=== PATIENT | female | born 1980 | race Caucasian/White ===

== ENCOUNTER 2016-09-30 14:25 | Emergency (ER) | payer OTHER ==
[2016-09-30 14:31] VITALS: TEMP 98.6
--- NOTE | 2016-09-30 15:01 | EDPHY ---
H & P Stated Complaint: rlq abd pain for approx 8 days HPI/ROS: CHIEF COMPLAINT: RLQ pain HISTORY OF PRESENT ILLNESS: The patient is a 36-year-old female presenting with 8-10 days of abdominal pain. The patient's pain originated around the umbilicus and has now migrated to the right lower quadrant. Her pain has increased in severity over the past few days. She reports pain with movement and states her RLQ is tender to the touch. Over the past few nights she has been having night sweats. She has slight nausea, no emesis or diarrhea. LMP was 2 weeks ago. She denies chance of , had vasectomy. REVIEW OF SYSTEMS: A ten point review of systems was performed and is negative with the exception of the items mentioned in the HPI. Past medical history: Denies. Past surgical history: Denies. Family history: Noncontributory. 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 General Appearance: Alert. Vital signs reviewed. Eyes: Pupils equal and round, no conjunctival injection, no discharge. Anicteric. ENT, Mouth: Mucous membranes are moist, no oropharyngeal erythema or edema. Neck: No lymphadenopathy, supple. Respiratory: Lungs are clear to auscultation; no wheezes, rales, or rhonchi. Cardiovascular: Regular rate and rhythm; no murmur, rub, or gallop. Gastrointestinal: Abdomen is soft and nontender, no masses or organomegaly, bowel sounds normal. Skin: Warm and dry, no rashes on exposed skin, normal color. Back: Nontender to palpation over the thoracolumbar spine. No CVAT. Extremities: No lower extremity edema, no calf tenderness or swelling. Neurological: Alert and oriented. Moving all four extremities easily and equally. Psychiatric: Normal affect. Source: Patient - Personal History LMP (Females 10-55): 15-21 Days Ago Current Tetanus/Diphtheria Vaccine: Yes - Medical/Surgical History Hx Asthma: No Hx Chronic Respiratory Disease: No Hx Diabetes: No Hx Cardiac Disease: No Hx Renal Disease: No Hx Cirrhosis: No Hx Alcoholism: No Hx HIV/AIDS: No Hx Splenectomy or Spleen Trauma: No Other PMH: med hx-anxiety. surg-Tonsils, strabismus - Social History Smoking Status: Former smoker Constitutional: Initial Vital Signs Temperature (C) 37 C 09/30/16 14:29 Heart Rate 78 09/30/16 14:29 Respiratory Rate 18 09/30/16 14:29 Blood Pressure 107/75 09/30/16 14:29 O2 Sat (%) 99 09/30/16 14:29 O2 Delivery Mode Room Air Allergies/Adverse Reactions: Sulfa (Sulfonamide Antibiotics) Allergy (Verified 09/30/16 14:28) Home Medications: Medication Instructions Recorded Propranolol HCl 09/30/16 Zoloft 100mg (*) 09/30/16 Medical Decision Making - Diagnostics Imaging: Discussed imaging studies w/ call center manager Radiologist ED Course/Re-evaluation: Patient presents with 8-10 days of abdominal pain, now localized to the RLQ. I am concerned for appendicitis. Plan to check CBC, BMP and urinalysis. Abdomen/ pelvic ultrasound ordered to rule out appendicitis. US shows right ovarian cyst with fluid in the pelvis. Appendix is not visualized. No ovarian torsion. White blood cell count is normal. Given the finding of a right ovarian cyst with free fluid I think that appendicitis is left less likely. Appendicitis is also less likely given the fact that her pain has been evolving over the last 8- 10 days. She is comfortable returning home and I agree that this is appropriate. She is discharged in stable condition. I am recommending NSAIDs for pain control. Differential Diagnosis: I considered a differential diagnosis that includes but is not limited to appendicitis, ovarian torsion, ruptured ovarian cyst, ectopic , and urinary tract infection. - Data Points Laboratory Results: Laboratory Results 09/30/16 15:06 09/30/16 15:06 Medications Given: Discontinued Medications Sodium Chloride (Ns) 1,000 mls @ 0 mls/hr IV ONCE ONE PRN Reason: Wide Open Stop: 09/30/16 15:25 Last Admin: 09/30/16 15:25 Dose: 1,000 mls Departure - Departure Disposition: Home, Routine, Self-Care Clinical Impression: Ruptured ovarian cyst Condition: Good Instructions: Ruptured Ovarian Cyst (ED) Additional Instructions: Adult Pain & Fever Control: We recommend Acetaminophen (Tylenol) and Ibuprofen (Motrin,Advil) for pain and fever control. When fever is high or pain severe, both drugs can be used at the same time, but at different intervals. Please note the time differences. Your dose is: Acetaminophen 650mg every 4 to 6 hours Ibuprofen 600mg every 6-8 hours with food. Note: do not take Acetaminophen with Hydrocodone (Vicodin, Lortab) or Oycodone (Percocet). These medications also contain Acetaminophen. No more than 3000mg of Acetaminophen should be taken in 24 hours (for an adult). I recommend heating pads when pain is severe. Followup with your primary care physician and/or your Colliery Clerk if symptoms persist. Referrals: Louann Coto MD [Primary Care Provider] - As per Instructions Report Scribed for: Ivett Koenig Report Scribed by: Melinda Pinto Date of Report: 09/30/16 Time of Report: 15:17 Physician Review and Approval Statement: 09/30/16 15:17 Portions of this note were transcribed by the medical supply technician. I, Dr. Ivett Koenig, personally performed the history, physical exam, and medical decision- making; and confirmed the accuracy of the information in the transcribed note.
[2016-09-30] MEDS ORDERED: NS 1,000 ML IV ONE (15:24)
[2016-09-30 15:25] LABS: % IMMATURE GRANULYOCYTES 0.5 % (0.0-1.1); ABSOLUTE IMMATURE GRANULOCYTES 0.03 10^3/uL (0.00-0.10); ADD DIFF? NO; ADD MORPH? NO; ADD SCAN? NO; ATYPICAL LYMPHOCYTE FLAG 20 (0-99); FRAGMENT RBC FLAG 0 (0-99); HEMOGLOBIN 13.8 g/dL (12.6-16.3); LEFT SHIFT FLG 0 (0-99); LIPEMIA HEMOLYSIS FLAG 80 (0-99); MEAN CELL HEMOGLOBIN 32.7 pg (27.9-34.1); MEAN CELL HEMOGLOBIN CONCENTR. 33.7 g/dL (32.4-36.7); MEAN CELL VOLUME 97.2 fL (81.5-99.8); MEAN PLATELET VOLUME 10.7 fL (8.7-11.7); PLATELET CLUMPS FLAG 0 (0-99); PLATELET COUNT 178 10^3/uL (150-400); RED BLOOD CELL COUNT 4.22 10^6/uL (4.18-5.33); RED CELL DISTRIBUTION WIDTH 11.2 % (11.5-15.2)
[2016-09-30 15:37] LABS: ANION GAP 15 mEq/L (8-16); CALCIUM 10.2 mg/dL (8.5-10.4); CARBON DIOXIDE 25 mEq/l (22-31); CHLORIDE 100 mEq/L (97-110); CREATININE 0.7 mg/dL (0.6-1.0); GLOMERULAR FILTRATION RATE > 60; GLUCOSE 86 mg/dL (70-100); POTASSIUM 3.7 mEq/L (3.5-5.2); SODIUM 140 mEq/L (134-144)
[2016-09-30 16:50] VITALS: BP 110/81; PULSE 68; RESP 16; O2SAT 98
== END 2016-09-30 16:50 | disposition home or self-care (01) ==
DX: N83.201 Unspecified ovarian cyst, right side (principal); Z87.891 Personal history of nicotine dependence